=== PATIENT | female | born 1965 | race Caucasian/White ===

== ENCOUNTER → 2019-09-06 | Outpatient (CLI) | payer BC ==
[~2019-09-06] MED LIST: GARCINIA CAMBO1 EACH PO; HYDROCODONE-AP1 EAC6 PO; IBUPROFEN 600600 M1 PO; MOBIC15 MG PO; NEXIUM 40 MG CA40 M1 PO; SIMVASTATIN40 MG PO; TRAMADOL 50 MG50 MG PO; UNICOMPLEX M TA1 TA1 PO; VITAMIN D-32000 UNIT PO; VITAMIN D35000 UNIT PO; XANAX 0.5 MG0.5 MG PO; ZOLOFT50 MG PO; [UNRECOGNIZED DRUG - OTHER] PO
== END ==
LOC: RAD 14:05
DX: R92.2 Inconclusive mammogram (principal); E55.9 Vitamin D deficiency, unspecified; Z85.3 Personal history of malignant neoplasm of breast